=== PATIENT | female | born 1990 | race Asian ===

== ENCOUNTER 2024-03-14 13:48 | Inpatient (IN) | payer BC ==
[2024-03-14] MEDS ORDERED: hydrALAZINE 20 MG/ML VIAL SLOW IVP PRN ×2 (14:10→15:39)
[2024-03-14] MEDS ORDERED: Promethazine HCl 25 MG/ML VIAL IM PRN (14:10)
[2024-03-14] MEDS ORDERED: Ondansetron PF 4 MG/2 ML Vial IVP PRN (14:10)
[2024-03-14] MEDS ORDERED: Methylergonovine 0.2 MG/ML VIAL IM PRN (14:16)
[2024-03-14] MEDS ORDERED: Tranexamic Acid 1,000 MG/10 ML VIAL IVP PRN (14:16)
[2024-03-14] MEDS ORDERED: Diphenoxylate HCl/Atropine Tablet PO PRN ×2 (14:16)
[2024-03-14] MEDS ORDERED: Carboprost 250 MCG/ML AMP IM PRN (14:16)
[2024-03-14] MEDS ORDERED: Misoprostol 200 MCG TAB PR PRN (14:16)
[2024-03-14] MEDS: Penicillin G Potassium 5 MILL.UNITS VIAL ONE (14:17)
[2024-03-14 14:31] LABS: Hematocrit 39.3 % (34.9-44.5); Hemoglobin 13.3 g/dL (12.0-15.5); Mean Corpuscular HGB CONC 33.8 g/dL (32.0-36.0); Mean Corpuscular Hemoglobin 31.8 pg (27.0-33.0); Platelet Count 238 10x3/uL (150-450); Red Blood Cell (RBC) Count 4.18 10x6/uL (3.90-5.03); White Blood Cell (WBC) Count 9.3 10x3/uL (3.5-10.5)
[2024-03-14] MEDS: Lidocaine 1% (PF) 30 ML VIAL ONE (15:00)
[2024-03-14] MEDS: Oxytocin 30 units/NS 500 ML 500 ML IV SCH (15:02)
[2024-03-14 15:04] LABS: Syphilis Antibody Nonreactive (Nonreactive); Syphilis Antibody Index 0.03 S/CO (<1.00 Non-Reactive)
[2024-03-14 15:17] VITALS: BMI 30.2
[2024-03-14] MEDS ORDERED: Benzocaine-Menthol 82.5 ML CAN TOP PRN (15:39)
[2024-03-14] MEDS ORDERED: Bisacodyl 10 MG SUPP PR PRN (15:39)
[2024-03-14] MEDS ORDERED: Milk Of Magnesia 30 ML UDCUP PO PRN (15:39)
[2024-03-14] MEDS ORDERED: HYDROcodone/Acetaminophen 5/325 mg Tablet PO PRN (17:24)
[2024-03-14] MEDS ORDERED: Lanolin Ointment 7 GM TUBE TOP PRN (17:24)
[2024-03-14 17:33] LABS: Hep B Surf Ag - L&D Reflx Confirmation S/CO (NonReactive)
[2024-03-14] MEDS: Ibuprofen 800 MG TAB PO SCH (17:42)
[2024-03-14] MEDS: fentaNYL/Ropivacaine Epidural 0 ML ONE (18:28)
[2024-03-14] MEDS: Ferrous Sulfate 325 MG TAB PO SCH (18:28)
[2024-03-14] MEDS: Oxytocin 30 units/NS 500 ML 500 ML ONE (18:28)
[2024-03-14] MEDS: Docusate 100 MG CAP PO SCH (21:40)
[2024-03-14 21:55] LABS: HBsAg Index 6289.76 S/CO (0-0.99)
[2024-03-14] MEDS ORDERED: Ibuprofen 800 MG TAB PO SCH (22:00)
[2024-03-15] MEDS: HYDROcodone/Acetaminophen 5/325 mg Tablet PO PRN (01:19)
[2024-03-15 04:20] LABS: Hematocrit 33.5 % (34.9-44.5); Hemoglobin 10.8 g/dL (12.0-15.5)
[2024-03-15] MEDS: Prenatal Vitamin 1 TAB PO SCH (08:22)
[2024-03-15 16:12] VITALS: BP 108/52; TEMP 97.5
[2024-03-17 01:13] LABS: Hep B Surface AG-Rflx Sendout Confirm. indicated (Negative)
== END 2024-03-15 17:50 | disposition home or self-care (01) | DRG 806 ==
LOC: CSHLD/OP 13:48 → CSHLD 14:14 → CSHPP 18:00
PROVIDERS: ADMIT Obstetrics & Gynecology; ATTEND Obstetrics & Gynecology
PROC: 10E0XZZ Delivery of Products of Conception, External Approach (ICD-10-PCS; principal; 2024-03-14)
PROC: 0KQM0ZZ Repair Perineum Muscle, Open Approach (ICD-10-PCS; 2024-03-14)
DX: O98.42 Viral hepatitis complicating childbirth (principal); B18.1 Chronic viral hepatitis B without delta-agent; Z37.0 Single live birth; Z3A.41 41 weeks gestation of pregnancy; Z79.899 Other long term (current) drug therapy
CPT/HCPCS: 36415; 85014; 85018; 85027; 86780; 86850; 86900; 86901; 87340; 99285; J2001; J2540; J2590